=== PATIENT | male | born 1965 | race Two or more races ===

== ENCOUNTER 2016-11-24 19:37 | Emergency (ER) | payer MEDICAID ==
[~2016-11-24] VITALS: Ht 167.6 cm; Wt 70.3 kg
--- NOTE | 2016-11-24 19:51 | NUR ---
pt ambulatory w/ steady gait to , here for c/o high bp at home, no other medical complaints w/ no hx htn. AOx4, afebrile w/ resp even & unlabored, denies any pain, no VACA, no dizziness, no blurred vision, no sob w/ nad noted. pt in gown, on continuous monitoring. Pending further eval fr [facility].
--- NOTE | 2016-11-24 19:58 | NUR ---
Dr. Biswas at bedside for further eval.
--- NOTE | 2016-11-24 20:01 | NUR ---
traffic signal technician at bedside for blood draw.
[2016-11-24 20:09] LABS: BASOPHILS # (AUTO) 0.1 /CMM (0.0-0.2); BASOPHILS % (AUTO) 0.7 % (0.0-2.0); EOSINOPHILS # (AUTO) 0.8 /CMM (0.0-0.7); EOSINOPHILS % (AUTO) 7.2 % (0.0-6.0); HEMATOCRIT 42 % (39-51); HEMOGLOBIN 12.9 g/dL (13.5-17.5); LYMPHOCYTES % (AUTO) 36.1 % (20.0-44.0); MEAN CORPUSCULAR HEMOGLOBIN 19 PG (26.0-33.0); MEAN CORPUSCULAR HGB CONC 31 g/dl (31.0-36.0); MEAN CORPUSCULAR VOLUME 63 fL (80-96); MONOCYTES # (AUTO) 0.9 /CMM (0.1-1.30); MONOCYTES % (AUTO) 7.8 % (2.0-12.0); NEUTROPHILS # (AUTO) 5.4 /CMM (1.8-8.9); NEUTROPHILS % (AUTO) 48.2 % (43.0-81.0); PLATELET COUNT (AUTO) 204 /CMM (150-450); RDW COEFFICIENT OF VARIATION 15.4 (11.5-15.0); RED BLOOD CELL COUNT(AUTO) 6.66 MIL/uL (4.5-6.0); WHITE BLOOD COUNT (AUTO) 11.2 K/uL (4.3-11.0)
[2016-11-24 20:21] LABS: CALCIUM, SERUM 8.8 mg/dL (8.5-10.1); POTASSIUM 3.3 mmol/L (3.5-5.1)
[2016-11-24] MEDS ORDERED: POTASSIUM CHLORIDE 20 MEQ TAB.PRT.SR PO ONE ×2 (20:30→20:31)
[2016-11-24 20:52] LABS: EOSINOPHILS % (MANUAL) 4 % (0-4); LYMPHOCYTES % (MANUAL) 30 % (16-48); MONOCYTES % (MANUAL) 7 % (0-11.0); NEUTROPHILS % (MANUAL) 59 (42-76)
--- NOTE | 2016-11-24 21:18 | NUR ---
Pt ambulatory w/ steady gait to restroom, resp even & unlabored, nad noted.
--- NOTE | 2016-11-24 21:24 | NUR ---
Dr. Biswas at bedside for update on pt status.
[2016-11-24 21:38] VITALS: BP 146/94
--- NOTE | 2016-11-24 21:38 | NUR ---
Patient discharged to home in stable condition. Written and verbal after care instructions given. Patient verbalizes understanding of instruction.
== END 2016-11-24 21:39 | disposition home or self-care (01) ==
LOC: ER 19:40
DX: I10 Essential (primary) hypertension (principal); E87.6 Hypokalemia; D64.9 Anemia, unspecified; E78.00 Pure hypercholesterolemia, unspecified
CPT/HCPCS: 36415; 80048; 85025; 99284; A4606; Z7610

== ENCOUNTER 2017-06-01 19:34 | Emergency (ER) | payer MEDICAID ==
[~2017-06-01] VITALS: Ht 170.2 cm; Wt 68.0 kg
--- NOTE | 2017-06-01 19:50 | NUR ---
PT CAME FROM HOME C/O DIZZINESS X 24 HOURS, A/O X 4, BREATHING EVEN/UNLABORED, SKIN WARM/DRY, WALKS WITH STEADY GAIT, PT STATES "I AM USUALLY VERY HEALTHY, ONLY HAVE HTN AND ANXIETY, I HAVE HAD NO UNEXPLAINED FALLS/LOC RECCENTLY."
[2017-06-01 20:57] LABS: BASOPHILS # (AUTO) 0.1 /CMM (0.0-0.2); BASOPHILS % (AUTO) 0.7 % (0.0-2.0); EOSINOPHILS # (AUTO) 0.5 /CMM (0.0-0.7); EOSINOPHILS % (AUTO) 6.1 % (0.0-6.0); HEMATOCRIT 38 % (39-51); HEMOGLOBIN 12.3 g/dL (13.5-17.5); LYMPHOCYTES # (AUTO) 3.2 /CMM (0.8-4.8); LYMPHOCYTES % (AUTO) 38.7 % (20.0-44.0); MEAN CORPUSCULAR HEMOGLOBIN 20 PG (26.0-33.0); MEAN CORPUSCULAR HGB CONC 32 g/dl (31.0-36.0); MEAN CORPUSCULAR VOLUME 62 fL (80-96); MONOCYTES # (AUTO) 0.6 /CMM (0.1-1.30); MONOCYTES % (AUTO) 7.5 % (2.0-12.0); NEUTROPHILS # (AUTO) 3.8 /CMM (1.8-8.9); PLATELET COUNT (AUTO) 199 /CMM (150-450); RDW COEFFICIENT OF VARIATION 14.9 (11.5-15.0); RED BLOOD CELL COUNT(AUTO) 6.06 MIL/uL (4.5-6.0); WHITE BLOOD COUNT (AUTO) 8.2 K/uL (4.3-11.0)
[2017-06-01] MEDS ORDERED: IV NS 0.9% 1,000 ML BAG IV ONE (21:00)
[2017-06-01 21:05] LABS: CARBON DIOXIDE 23 mmol/L (21-32); CHLORIDE 100 mmol/L (98-107); CREATININE 0.9 mg/dL (0.6-1.3); GLUCOSE 98 mg/dL (74-106); POTASSIUM 3.6 mmol/L (3.5-5.1); SODIUM SERUM 132 mmol/L (136-145); UREA NITROGEN, BLOOD 10 mg/dL (7-18)
[2017-06-01 21:06] LABS: APPEARANCE,URINE Clear (CLEAR); BILIRUBIN,URINE Negative (NEGATIVE); BLOOD, URINE Negative Ery/uL (NEGATIVE); COLOR,URINE Yellow (YELLOW); KETONES,URINE Negative (NEGATIVE); LEUKOCYTE ESTERASE ,URINE Negative (NEGATIVE); NITRITE, URINE Negative (NEGATIVE); PROTEIN,URINE Negative (NEGATIVE); UGLUCOSE Negative (NEGATIVE); UROBILINOGEN,URINE 0.2 EU/dL (0.2)
[2017-06-01 21:11] LABS: ALANINE AMINOTRANSFERASE 78 U/L (12-78); ALBUMIN 3.8 g/dL (3.4-5.0); ALKALINE PHOSPHATASE 96 U/L (46-116); ASPARTATE AMINOTRANSFERASE 25 U/L (15-37); BILIRUBIN,DIRECT 0.1 mg/dL (0.0-0.2); BILIRUBIN,TOTAL 0.4 mg/dL (0.2-1.0); TOTAL PROTEIN, SERUM 7.1 g/dL (6.4-8.2)
[2017-06-01 21:12] LABS: INR 1.1 (0.87-1.13)
[2017-06-01 21:13] LABS: TROPONIN I < 0.017 ng/mL (0.00-0.056)
--- NOTE | 2017-06-01 23:31 | NUR ---
PT SITTING UP IN BED, NO C/O PAIN, BREATHING UNLABORED, ER PROVIDER BEDSIDE, OK TO D/C
[2017-06-01 23:34] VITALS: BP 148/90
== END 2017-06-01 23:34 | disposition home or self-care (01) ==
LOC: ER 19:36
DX: R42 Dizziness and giddiness (principal); F41.9 Anxiety disorder, unspecified; D56.9 Thalassemia, unspecified; I10 Essential (primary) hypertension; E78.00 Pure hypercholesterolemia, unspecified
CPT/HCPCS: 36415; 71045; 80048; 80076; 81001; 82962; 84484; 85025; 85730; 93005; 96360; 99285; A4606; J7030; Z7610; 81000-TC

== ENCOUNTER 2024-11-19 04:41 | Emergency (ER) | payer MEDICAID, OTHER ==
[~2024-11-19] VITALS: Ht 172.7 cm; Wt 74.8 kg
[2024-11-19] MEDS ORDERED: PSEU120T99 PO (05:10)
[2024-11-19] MEDS ORDERED: ALBU8.5H8 INH (05:10)
[2024-11-19] MEDS ORDERED: PRED50TA PO (05:10)
[2024-11-19 05:20] VITALS: BP 155/89; TEMP 98; O2SAT 99
== END 2024-11-19 05:21 | disposition home or self-care (01) ==
LOC: ER 04:46
DX: J45.901 Unspecified asthma with (acute) exacerbation (principal); J06.9 Acute upper respiratory infection, unspecified; I10 Essential (primary) hypertension; E78.00 Pure hypercholesterolemia, unspecified; B97.89 Other viral agents as the cause of diseases classified elsewhere; Z79.52 Long term (current) use of systemic steroids; Z88.2 Allergy status to sulfonamides; Z79.899 Other long term (current) drug therapy